=== PATIENT | male | born 1975 | race Caucasian/White ===

== ENCOUNTER 2016-07-10 12:20 | Inpatient (IN) | payer OTHER ==
[2016-07-10] MEDS ORDERED: NITROGLYCERIN OINT 1 INCH/GM PACKET TOPICAL STA (12:23)
--- NOTE | 2016-07-10 12:30 | ED ---
General Adult HPI - General Stated complaint: Chest Pain Time Seen by Provider: 07/10/16 12:20 Source: patient, EMS, RN notes reviewed Mode of arrival: EMS Limitations: no limitations - History of Present Illness Initial comments: This 40-year-old male who presents emergency with past medical history significant for smoking and a strong family history for heart disease. Patient has chest pain today went to his doctor's office where they saw the he has some minimal ST segment elevation in inferior leads and called EMS. When EMS arrived they saw the same thing and brought the patient is a priority 1. Patient states his chest pain is very minimal at this point in time. Patient states he also was a heroin and cocaine abuser but has been clean for 37 days. Patient denies any difficulty breathing shortness of breath or diaphoresis. Patient denies any abdominal pain patient denies nausea vomiting diarrhea. Patient denies any recent fever chills or cough - Related Data Home Medications Medication Instructions Recorded Confirmed Naproxen Sodium [Aleve] 440 mg PO ONCE PRN 07/10/16 07/10/16 Allergies Allergy/AdvReac Type Severity Reaction Status Date / Time cyclobenzaprine AdvReac Behavior Verified 07/10/16 13:12 [From Flexeril] change Review of Systems ROS Statement: Those systems with pertinent positive or pertinent negative responses have been documented in the HPI. ROS Other: All systems not noted in ROS Statement are negative. Past Medical History Past Medical History: No Reported History History of Any Multi-Drug Resistant Organisms: None Reported Additional Past Surgical History / Comment(s): inguinal hernia repair Past Psychological History: No Psychological Hx Reported Smoking Status: Current every day smoker Past Alcohol Use History: None Reported Past Drug Use History: IV Drug Use General Exam - General Exam Comments Initial Comments: GENERAL: Patient is well-developed and well-nourished. Patient is nontoxic and well- hydrated and is in mild distress. ENT: Neck is soft and supple. No significant lymphadenopathy is noted. Oropharynx is clear. Moist mucous membranes. Neck has full range of motion without eliciting any pain. EYES: The sclera were anicteric and conjunctiva were pink and moist. Extraocular movements were intact and pupils were equal round and reactive to light. Eyelids were unremarkable. PULMONARY: Unlabored respirations. Good breath sounds bilaterally. No audible rales rhonchi or wheezing was noted. CARDIOVASCULAR: There is a regular rate and rhythm without any murmurs gallops or rubs. ABDOMEN: Soft and nontender with normal bowel sounds. No palpable organomegaly was noted. There is no palpable pulsatile mass. SKIN: Skin is clear with no lesions or rashes and otherwise unremarkable. NEUROLOGIC: Patient is alert and oriented x3. Cranial nerves II through XII are grossly intact. Motor and sensory are also intact. Normal speech, volume and content. Symmetrical smile. MUSCULOSKELETAL: Normal extremities with adequate strength and full range of motion. No lower extremity swelling or edema. No calf tenderness. LYMPHATICS: No significant lymphadenopathy is noted PSYCHIATRIC: Normal psychiatric evaluation. Normal interpersonal interactions appears functionally intact in deals appropriately with others. No signs of depression. No signs of anxiety. Limitations: no limitations Course Vital Signs 07/10/16 07/10/16 07/10/16 12:23 13:53 14:05 Temperature 99.1 F Pulse Rate 71 68 63 Respiratory 18 18 18 Rate Blood Pressure 120/7 142/90 O2 Sat by Pulse 99 98 Oximetry Medical Decision Making - Medical Decision Making EKG shows normal sinus rhythm at 72 bpm OK interval is 104 QRS 78 QT interval 364 QTC is 398. Patient's EKG shows no ST segment elevation or depression or T- wave abnormality is noted. Patient started having some chest pain. Patient's EKG was repeated and showed sinus bradycardia 59 bpm OK interval is 176 QRS is 92 QT interval 386 QTC is 382. Patient's EKG shows no T-wave inversions however he does show some minor ST segment elevation II, III, and F aVF as well as leads V4 through V6 which all look like early repolarization. I spoke with Dr. Jacome on a couple of occasions indicating to him the changes in EKG. I started patient had a because of these changes as well as the patient 's symptoms. I admitted the patient I spoke with Dr. Park and I wrote orders and consult cardiology and I continue the heparin and aspirin and nitro paste on the floor. - Lab Data Result diagrams: 07/10/16 12:22 07/10/16 12:22 Lab Results 07/10/16 07/10/16 07/10/16 Range/Units 12:22 12:22 12:22 WBC 9.5 (3.8-10.6) k/uL RBC 5.06 (4.30-5.90) m/uL Hgb 15.9 (13.0-17.5) gm/dL Hct 48.1 (39.0-53.0) % MCV 95.1 (80.0-100.0) fL MCH 31.5 (25.0-35.0) pg MCHC 33.1 (31.0-37.0) g/dL RDW 13.0 (11.5-15.5) % Plt Count 235 (150-450) k/uL Neutrophils % 62 % Lymphocytes % 26 % Monocytes % 6 % Eosinophils % 3 % Basophils % 1 % Neutrophils # 5.9 (1.3-7.7) k/uL Lymphocytes # 2.5 (1.0-4.8) k/uL Monocytes # 0.6 (0-1.0) k/uL Eosinophils # 0.3 (0-0.7) k/uL Basophils # 0.1 (0-0.2) k/uL PT (9.0-12.0) sec INR (<1.1) APTT (22.0-30.0) sec Sodium 142 (137-145) mmol/L Potassium 4.6 (3.5-5.1) mmol/L Chloride 107 (98-107) mmol/L Carbon Dioxide 25 (22-30) mmol/L Anion Gap 10 mmol/L BUN 16 (9-20) mg/dL Creatinine 0.93 (0.66-1.25) mg/dL Est GFR (MDRD) Af Amer >60 (>60 ml/min/1.73 sqM) Est GFR (MDRD) Non-Af >60 (>60 ml/min/1.73 sqM) Glucose 96 (74-99) mg/dL Calcium 10.0 (8.4-10.2) mg/dL Magnesium 1.8 (1.6-2.3) mg/dL Total Bilirubin 0.7 (0.2-1.3) mg/dL AST 19 (17-59) U/L ALT 27 (21-72) U/L Alkaline Phosphatase 60 (38-126) U/L Total Creatine Kinase 76 (55-170) U/L CK-MB (CK-2) 0.6 (0.0-2.4) ng/mL CK-MB (CK-2) Rel Index 0.8 Troponin I <0.012 (0.000-0.034) ng/mL Total Protein 7.8 (6.3-8.2) g/dL Albumin 4.9 (3.5-5.0) g/dL 07/10/16 Range/Units 12:22 WBC (3.8-10.6) k/uL RBC (4.30-5.90) m/uL Hgb (13.0-17.5) gm/dL Hct (39.0-53.0) % MCV (80.0-100.0) fL MCH (25.0-35.0) pg MCHC (31.0-37.0) g/dL RDW (11.5-15.5) % Plt Count (150-450) k/uL Neutrophils % % Lymphocytes % % Monocytes % % Eosinophils % % Basophils % % Neutrophils # (1.3-7.7) k/uL Lymphocytes # (1.0-4.8) k/uL Monocytes # (0-1.0) k/uL Eosinophils # (0-0.7) k/uL Basophils # (0-0.2) k/uL PT 11.3 (9.0-12.0) sec INR 1.1 (<1.1) APTT 25.1 (22.0-30.0) sec Sodium (137-145) mmol/L Potassium (3.5-5.1) mmol/L Chloride (98-107) mmol/L Carbon Dioxide (22-30) mmol/L Anion Gap mmol/L BUN (9-20) mg/dL Creatinine (0.66-1.25) mg/dL Est GFR (MDRD) Af Amer (>60 ml/min/1.73 sqM) Est GFR (MDRD) Non-Af (>60 ml/min/1.73 sqM) Glucose (74-99) mg/dL Calcium (8.4-10.2) mg/dL Magnesium (1.6-2.3) mg/dL Total Bilirubin (0.2-1.3) mg/dL AST (17-59) U/L ALT (21-72) U/L Alkaline Phosphatase (38-126) U/L Total Creatine Kinase (55-170) U/L CK-MB (CK-2) (0.0-2.4) ng/mL CK-MB (CK-2) Rel Index Troponin I (0.000-0.034) ng/mL Total Protein (6.3-8.2) g/dL Albumin (3.5-5.0) g/dL Critical Care Time Critical Care Time: Yes Total Critical Care Time: 35 Disposition Clinical Impression: Unstable angina pectoris Disposition: ADMITTED IP TO THIS [facility] Time of Disposition: 14:24
[2016-07-10 12:34] LABS: Basophils # (A) 0.1 k/uL (0-0.2); Basophils % (A) 1 %; CH 32.1; CHCM 33.9; Eosinophils # (A) 0.3 k/uL (0-0.7); Eosinophils % (A) 3 %; HCT 48.1 % (39.0-53.0); HDW 2.33; HGB 15.9 gm/dL (13.0-17.5); Luc # (Auto) 0.21; Luc % (Auto) 2; Lymphocytes # (A) 2.5 k/uL (1.0-4.8); Lymphocytes % (A) 26 %; MCH 31.5 pg (25.0-35.0); MCHC 33.1 g/dL (31.0-37.0); MCV 95.1 fL (80.0-100.0); Mean Platelet Volume 7.8; Monocytes # (A) 0.6 k/uL (0-1.0); Monocytes % (A) 6 %; Neutrophils # (A) 5.9 k/uL (1.3-7.7); Neutrophils % (A) 62 %; RBC 5.06 m/uL (4.30-5.90); WBC 9.5 k/uL (3.8-10.6); WBC (Perox) 9.45
[2016-07-10 12:47] LABS: INR 1.1 (<1.1); Partial Thromboplastin Time 25.1 sec (22.0-30.0); Prothrombin Time 11.3 sec (9.0-12.0)
[2016-07-10 12:49] LABS: ALT 27 U/L (21-72); AST 19 U/L (17-59); Alkaline Phosphatase 60 U/L (38-126); Anion Gap 10 mmol/L; Blood Urea Nitrogen 16 mg/dL (9-20); Carbon Dioxide 25 mmol/L (22-30); Chloride 107 mmol/L (98-107); Glucose 96 mg/dL (74-99); Magnesium 1.8 mg/dL (1.6-2.3); Non-African American GFR(MDRD) >60 (>60 ml/min/1.73 sqM); Potassium 4.6 mmol/L (3.5-5.1); Sodium 142 mmol/L (137-145); Total Bilirubin 0.7 mg/dL (0.2-1.3); Total Protein 7.8 g/dL (6.3-8.2)
--- NOTE | 2016-07-10 13:08 | XR ---
EXAMINATION TYPE: XR chest 2V DATE OF EXAM: 07/10/2016 1:03 PM COMPARISON: NONE HISTORY: Chest pain TECHNIQUE: Frontal and lateral views of the chest are obtained. FINDINGS: There is no focal air space opacity. No evidence for pnuemothorax.No pleural effusion. The cardiac silhouette size is within normal limits. The osseous structures are grossly intact. IMPRESSION: 1. No acute cardiopulmonary process.
[2016-07-10 13:12] LABS: Creatine Kinase 76 U/L (55-170)
[2016-07-10 13:26] LABS: Creatine Kinase MB 0.6 ng/mL (0.0-2.4); Troponin I <0.012 ng/mL (0.000-0.034)
[2016-07-10] MEDS ORDERED: HEPARIN SODIUM,PORCINE 5,000 UNIT/ML 1 ML VIAL IV ONE (14:23)
[2016-07-10] MEDS: NITROGLYCERIN SL TABS 0.4 MG TAB SUBLINGUAL PRN ×2 (14:29→14:42)
[2016-07-10] MEDS ORDERED: HEPARIN SODIUM,PORCINE/D5W PMX 25,000 UNIT in DEXTROSE/WATER 1 500ML.BAG IV SCH (14:30)
--- NOTE | 2016-07-10 14:52 | P.CRDCN ---
History of Present Illness Consult date: 07/10/16 Chief complaint: Chest discomfort History of present illness: This is a pleasant 40-year-old gentleman with no significant past medical history but significant history of smoking and significant family history of coronary artery disease was referred to the emergency room [place] [facility] [place] The patient was getting treated for drug abuse and he has been clean for the last 37 days. He was seen by his physician earlier today when he complained to him about chest discomfort. An EKG over there was performed and showed sinus rhythm with diffuse ST segment elevation consistent with airway repolarization. The patient was referred to the emergency room for further evaluation. I seen the patient in the ER where he stated that he's been experiencing intermittent episodes of chest discomfort over the last several years but over the last several weeks the chest discomfort was more intense and more frequent than before. In the ER he was having chest discomfort and it was relieved by nitroglycerin sublingual. The first set of cardiac enzymes came in to be unremarkable. We have to more sets of enzymes. The EKG showed sinus rhythm with early repolarization. An echocardiogram was performed and will follow-up with us. I would rule out an acute coronary event by following with serial cardiac enzymes. We will repeat the EKG in association with any chest discomfort. If the patient develop any more discomfort I will consider proceeding with coronary angiogram. Past Medical History Past Medical History: No Reported History History of Any Multi-Drug Resistant Organisms: None Reported Additional Past Surgical History / Comment(s): inguinal hernia repair Past Psychological History: No Psychological Hx Reported Smoking Status: Current every day smoker Past Alcohol Use History: None Reported Past Drug Use History: IV Drug Use Medications and Allergies Home Medications Medication Instructions Recorded Confirmed Type Naproxen Sodium [Aleve] 440 mg PO ONCE PRN 07/10/16 07/10/16 History Allergies Allergy/AdvReac Type Severity Reaction Status Date / Time cyclobenzaprine AdvReac Behavior Verified 07/10/16 13:12 [From Flexeril] change Physical Exam Vitals: Vital Signs Pulse Resp BP Pulse Ox 07/10/16 14:44 69 18 128/83 97 07/10/16 14:39 69 18 128/83 97 - Constitutional General appearance: no acute distress - Respiratory Respiratory: bilateral: CTA - Cardiovascular Rhythm: regular Heart sounds: normal: S1, S2 Results 07/10/16 12:22 07/10/16 12:22 Current Medications Generic Name Dose Route Start Last Admin Trade Name Freq PRN Reason Stop Dose Admin Aspirin 325 mg 07/11/16 09:00 Aspirin PO DAILY [facility] Heparin Sodium/Dextrose 25,000 500 mls @ 13.82 mls/hr 07/10/16 14:30 unit/ IV Solution IV .Q24H [facility] Protocol 12 UNITS/KG/HR Nitroglycerin 1 inch 07/10/16 18:00 Nitro-Bid Oint TOPICAL Q6HR [facility] Nitroglycerin 0.4 mg 07/10/16 14:24 07/10/16 14:42 Nitrostat SUBLINGUAL 0.4 mg Q5M PRN Administration Chest Pain Assessment and Plan Plan: Assessment #1 intermittent episodes of chest discomfort #2 significant history of smoking #3 significant family history of CAD Plan #1 rule out any acute coronary event #2 currently the patient is pain-free #3 obtain an echocardiogram was Doppler #4 follow-up with the patient
[2016-07-10] MEDS ORDERED: ACETAMINOPHEN TAB 325 MG TAB PO STA (15:08)
[2016-07-10] MEDS: NITROGLYCERIN OINT 1 INCH/GM PACKET TOPICAL SCH ×2 (18:31→23:41)
[2016-07-10 18:45] LABS: Creatine Kinase 64 U/L (55-170)
[2016-07-10 18:58] LABS: Creatine Kinase MB 0.5 ng/mL (0.0-2.4); Troponin I <0.012 ng/mL (0.000-0.034)
[2016-07-10] MEDS: ACETAMINOPHEN TAB 325 MG TAB PO PRN (19:46)
[2016-07-10] MEDS: GABAPENTIN 300 MG CAP PO SCH (23:39)
[2016-07-11 01:32] LABS: Creatine Kinase 54 U/L (55-170)
[2016-07-11 01:43] LABS: Creatine Kinase MB 0.3 ng/mL (0.0-2.4); Troponin I <0.012 ng/mL (0.000-0.034)
[2016-07-11] MEDS: ACETAMINOPHEN TAB 325 MG TAB PO PRN ×5 (03:17→23:11)
[2016-07-11 04:22] LABS: Cholesterol 163 mg/dL (<200); HDL Cholesterol 38 mg/dL (40-60); Triglycerides 198 mg/dL (<150)
[2016-07-11] MEDS: NITROGLYCERIN OINT 1 INCH/GM PACKET TOPICAL SCH (06:30)
--- NOTE | 2016-07-11 08:07 | HP ---
DATE OF ADMISSION: CHIEF COMPLAINT: Chest pain. HISTORY OF PRESENT ILLNESS: This is the first admission for this 40-year-old white male. He came to emergency room with right-sided "sharp and stabbing" chest pain. He has had it on and off for some time. He has no associated cough, hemoptysis, fever, chills, pleuritic pain, palpitations, syncope, orthopnea, PND, etc. Studies in the emergency room were negative. He does have a history of drug abuse. He also has extensive family history of cardiac disease. He has had no associated radiation of the pain, heavy or pressure-like sensation, diaphoresis or shortness of breath. REVIEW OF SYSTEMS: He has had no other symptoms. It is not related to food or diet. Past medical history, family and personal and social histories are unremarkable otherwise except that he smokes a pack of cigarettes a day. He also just gout out of rehab for substance abuse and he has abused multiple different substances including stimulants, crack cocaine, heroin, etc. PHYSICAL EXAMINATION: Blood pressure 136/84, pulse 71, respirations 19. He is afebrile. GENERAL: He appeared to be slender, in no acute distress. Skin color is normal. Skin is warm and dry. Lymph nodes are not enlarged. Head, ears, eyes, nose, mouth, and throat were normal. Neck veins not distended. Thyroid is not enlarged. Chest is clear. Cardiac exam is normal. ABDOMEN: Soft, nontender. EXTREMITIES: Normal. Neurologically, he is intact. IMPRESSION: 1. Atypical right-sided anterior chest wall pain. 2. History of substance abuse. PLAN: 1. Bedrest. 3. IV fluids. 4. Serial EKGs and enzymes. 5. Probably home tomorrow.
[2016-07-11] MEDS: GABAPENTIN 300 MG CAP PO SCH ×4 (08:17→20:29)
[2016-07-11] MEDS: ASPIRIN 325 MG TAB PO SCH (08:18)
--- NOTE | 2016-07-11 12:49 | P.PN ---
Subjective Principal diagnosis: On going chest discomfort This is a pleasant 40-year-old gentleman with no significant past medical history but significant history of smoking and significant family history of coronary artery disease was referred to the emergency room from [facility]. The patient was getting treated for drug abuse and he has been clean for the last 37 days. He was seen by his physician earlier today when he complained to him about chest discomfort. An EKG over there was performed and showed sinus rhythm with diffuse ST segment elevation consistent with airway repolarization. The patient was referred to the emergency room for further evaluation. I seen the patient in the ER where he stated that he's been experiencing intermittent episodes of chest discomfort over the last several years but over the last several weeks the chest discomfort was more intense and more frequent than before. In the ER he was having chest discomfort and it was relieved by nitroglycerin sublingual. 3 sets of cardiac enzymes were checked and came in to be unremarkable. The EKG showed sinus rhythm with early repolarization. He underwent an echocardiogram which is still pending at this point. The patient continues to have mild ongoing chest discomfort. If the echocardiogram did not show any signs of pericardial effusion I will consider proceeding with heart catheterization barely this afternoon. Objective - Vital Signs Vital signs: Vital Signs Temp 97.0 F L 07/11/16 08:00 Pulse 68 07/11/16 08:00 Resp 16 07/11/16 08:00 BP 116/83 07/11/16 08:00 Pulse Ox 98 07/11/16 08:00 Intake & Output 07/10/16 07/11/16 07/11/16 18:59 06:59 18:59 Intake Total 13.82 237.977 Balance 13.82 237.977 Weight 57.606 kg 53.7 kg Intake: IV 13.82 Heparin Sodium,Porcine/ 13.82 D5w Pmx 25,000 unit In Dextrose/Water 1 500ml. bag @ 12 UNITS/KG/HR 13. 82 mls/hr IV .Q24H [facility] Rx #:[id number] Intake, IV Titration 237.977 Amount Heparin Sodium,Porcine/ 237.977 D5w Pmx 25,000 unit In Dextrose/Water 1 500ml. bag @ 12 UNITS/KG/HR 13. 82 mls/hr IV .Q24H [facility] Rx #:[id number] Other: Voiding Method Toilet Toilet # Voids 1 - Constitutional General appearance: Present: no acute distress - Respiratory Respiratory: bilateral: CTA - Cardiovascular Rhythm: regular - Labs CBC & Chem 7: 07/10/16 12:22 07/10/16 12:22 Labs: Abnormal Lab Results - Last 24 Hours (Table) 07/10/16 07/11/16 07/11/16 Range/Units 21:15 00:55 03:55 APTT 35.2 H (22.0-30.0) sec Total Creatine Kinase 54 L (55-170) U/L Triglycerides 198 H (<150) mg/dL HDL Cholesterol 38 L (40-60) mg/dL 07/11/16 07/11/16 Range/Units 03:55 12:12 APTT 38.8 H 54.0 H (22.0-30.0) sec Total Creatine Kinase (55-170) U/L Triglycerides (<150) mg/dL HDL Cholesterol (40-60) mg/dL Assessment and Plan Plan: Assessment #1 intermittent episodes of chest discomfort #2 significant history of smoking #3 significant family history of CAD Plan #1 acute coronary syndrome was ruled out #2 awaiting for the echocardiogram
--- NOTE | 2016-07-11 13:59 | PN ---
DATE OF SERVICE: 07/11/2016 CHIEF COMPLAINT: Atypical chest pain. HISTORY OF PRESENT ILLNESS: This gentleman is doing well. He has had no pain or any other difficulty. He will probably be able to go home today. PHYSICAL EXAM: Chest is clear. Cardiac exam is normal. ABDOMEN: Soft, nontender. IMPRESSION: 1. Atypical chest pain. 2. History of substance abuse. PLAN: Probably home today and this will be arranged by the nurse practitioner.
[2016-07-11] MEDS: NICOTINE 21MG/24HR PATCH TRANSDERM SCH (17:03)
[2016-07-11 23:57] LABS: Anion Gap 10 mmol/L; Blood Urea Nitrogen 15 mg/dL (9-20); Calcium 9.9 mg/dL (8.4-10.2); Carbon Dioxide 23 mmol/L (22-30); Chloride 109 mmol/L (98-107); Glucose 109 mg/dL (74-99); Non-African American GFR(MDRD) >60 (>60 ml/min/1.73 sqM); Potassium 4.1 mmol/L (3.5-5.1); Sodium 142 mmol/L (137-145)
[2016-07-12] MEDS: NITROGLYCERIN SL TABS 0.4 MG TAB SUBLINGUAL PRN ×3 (03:24→03:37)
[2016-07-12] MEDS: ACETAMINOPHEN TAB 325 MG TAB PO PRN ×2 (04:12→10:04)
[2016-07-12] MEDS: NICOTINE 21MG/24HR PATCH TRANSDERM SCH (06:29)
[2016-07-12] MEDS: GABAPENTIN 300 MG CAP PO SCH ×2 (06:29→13:11)
[2016-07-12] MEDS: ASPIRIN 325 MG TAB PO SCH (06:29)
[2016-07-12] MEDS ORDERED: MIDAZOLAM 2 MG/2 ML VIAL ONE (10:42)
[2016-07-12] MEDS ORDERED: VERAPAMIL 2.5 MG/ML 2 ML AMP ONE (10:42)
[2016-07-12] MEDS ORDERED: LIDOCAINE 2% INJ 20 MG/ML (20 ML MDV) ONE (10:42)
[2016-07-12] MEDS ORDERED: IV FLUID CONTINUATION 575 ML IV ONE (10:45)
[2016-07-12] MEDS ORDERED: MIDAZOLAM 2 MG/2 ML VIAL IVP ONE (11:01)
[2016-07-12] MEDS ORDERED: HEPARIN SODIUM 1,000 UNIT/ML VIAL ONE (11:10)
[2016-07-12] MEDS ORDERED: LIDOCAINE 2% INJ 20 MG/ML SQ ONE (11:11)
[2016-07-12] MEDS: VERAPAMIL SYRINGE (5 MG/10 ML) INTRAARTER ONE ×2 (11:12→11:24)
[2016-07-12] MEDS ORDERED: HEPARIN SODIUM 1,000 UNIT/ML VIAL IV ONE (11:13)
[2016-07-12] MEDS ORDERED: IOHEXOL 350 MG/ML 125ML BOTTLE INJ ONE (11:24)
[2016-07-12] MEDS ORDERED: SODIUM CHLORIDE 0.9% 1,000 ML IV SCH (11:30)
[2016-07-12] MEDS ORDERED: RX INFO: IV CONTRAST WAS GIVEN 1 EACH MISC MISCELLANE PRN (11:30)
--- NOTE | 2016-07-12 12:05 | CC ---
DATE OF SERVICE: 07/12/2016 PERFORMING PHYSICIAN: Clinton López MD, food handler. PROCEDURE PERFORMED: Selective right and left coronary angiogram. INDICATION: This is a pleasant 40-year-old gentleman who presented to the hospital with chest discomfort and continues to have ongoing chest discomfort. He has very significant family history of coronary artery disease. He is also a smoker. APPROACH: Right radial artery. COMPLICATIONS: None. LEVEL OF SEDATION: Moderate with sedation length of 15 minutes. PROCEDURE DESCRIPTION: After obtaining an informed consent, the patient was brought to the cardiac bolt labeler. Right radial artery was cannulated using micropuncture technique. The micropuncture wire passed easily, then I placed 6 Sami sheath in the right radial artery. Subsequently, I gave the patient 2 mg of verapamil IA and 3000 units of heparin IV. After that, I did selective right and left coronary angiogram using JR4 and JL3.5 catheters. The procedure was completed without any complication. SELECTIVE CORONARY ANGIOGRAM: 1. The right coronary artery is a large-caliber vessel and it is a dominant vessel. It is angiographically normal. Distally bifurcates into PDA and PLV branches and both are angiographically normal. 2. The left main is a large-caliber vessel. The left main has eccentric plaque, seems to be in the range of 20% to 30%. It bifurcates into the left circumflex and left anterior descending artery. 3. The left circumflex is a medium caliber vessel and it is a nondominant vessel. The proximal circumflex is angiographically normal and gives rises into the first OM, which appeared to be angiographically normally. The mid circumflex is normal and gives rise into second OM, which seems to be angiographically normal and the circumflex continues after that as a small-caliber vessel in the AV groove. 4. The left anterior descending artery: The proximal LAD appeared to be angiographically normal. It gives rise into the first diagonal branch, which seems to be angiographically normal. The mid LAD has what seems to be evidence of myocardial bridging. The LAD in the midportion gives rise into the second diagonal branch, which seems to be angiographically normally. The LAD distally is normal. CONCLUSION: 1. Mild disease involving the distal left main coronary artery. 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 Postprocedure management will be: 1. Maximize medical treatment. 2. Add statin to the current medical treatment. 3. Follow up with the patient.
--- NOTE | 2016-07-12 12:51 | PN ---
CHIEF COMPLAINT: Atypical chest pain. HISTORY OF PRESENT ILLNESS: This gentleman had another episode of pain today, which he describes as sharp and stabbing in the right anterior chest. It is fleeting and disappeared. He had no diaphoresis or shortness of breath and he is going for a cardiac cath today. PHYSICAL EXAM: Chest is clear. Cardiac exam is normal. ABDOMEN: Soft, nontender. Vital signs are normal. IMPRESSION: 1. Atypical chest pain. 2. History of substance abuse. PLAN: Cardiac cath today.
[2016-07-12 14:21] VITALS: TEMP 98.8
[2016-07-12 14:23] VITALS: RESP 16
[2016-07-12 16:33] VITALS: BP 144/88; PULSE 88
[2016-07-13] MEDS ORDERED: ATORVASTATIN 20 MG TAB PO SCH (09:00)
--- NOTE | 2016-07-13 20:40 | DS ---
DATE OF ADMISSION: 07/10/2016 DATE OF DISCHARGE: 07/12/2016 CHIEF COMPLAINT: Atypical chest pain. HISTORY OF PRESENT ILLNESS AND PHYSICAL EXAMINATION: The details of this man's history and physical can be found in the initial work-up. LABORATORY STUDIES: While he was in hospital, he had laboratory studies, the details of which can be found in the laboratory section of the chart. COURSE IN THE HOSPITAL: After admission, he was placed on bed rest, started on intravenous fluids and had serial EKGs and enzymes and they were all normal. He was seen by Cardiology who decided to take him to the label printing machinist for cardiac cath, which demonstrated no significant coronary artery disease. It was felt he could be discharged. He could go home on light activity about the house and his usual diet. DISCHARGE MEDICATIONS: 1. He will be on Lipitor 20 mg at bedtime. 2. Nitroglycerin patch 21 micrograms an hour. 3. 81 mg aspirin. He will follow-up in the office in several days. FINAL DIAGNOSES: 1. Atypical chest pain. 2. Chronic obstructive pulmonary disease. Operations: Cardiac cath. CONSULTATIONS: Cardiology. He is improved.
--- NOTE | 2016-07-16 16:10 | ECHOF ---
Referral Reason:Chest Pain MEASUREMENTS -------- HEIGHT: 165.1 cm WEIGHT: 57.6 kg BP: 134/78 IVSd: 1.1 cm (0.6 - 1.1) LVIDd: 3.5 cm (3.9 - 5.3) LVPWd: 1.1 cm (0.6 - 1.1) IVSs: 1.2 cm LVIDs: 2.1 cm LVPWs: 1.3 cm Ao Diam: 3.2 cm (2.0 - 3.7) AV Cusp: 2.1 cm (1.5 - 2.6) LA Diam: 2.5 cm (2.7 - 3.8) MV EXCURSION: 16.638 mm (> 18.000) MV EF SLOPE: 91 mm/s (70 - 150) EPSS: 0.6 cm MV E Pee: 0.56 m/s MV DecT: 214 ms MV A Pee: 0.52 m/s MV E/A Ratio: 1.08 RAP: 5.00 mmHg RVSP: 8.86 mmHg FINDINGS -------- Sinus rhythm. This was a technically good study. There is borderline concentric left ventricular hypertrophy. Overall left ventricular systolic function is normal with, an EF between 60 - 65 %. The right ventricle is normal in size. Normal LA size by volume 22+/-6 ml/m2. The right atrium is normal in size. Aortic valve is trileaflet and is mildly thickened. There is no evidence of aortic regurgitation. There is no evidence of aortic stenosis. The mitral valve leaflets are mildly thickened. There is trace mitral regurgitation. Trace tricuspid regurgitation present. There is no evidence of pulmonary hypertension. The right ventricular systolic pressure, as measured by Doppler, is 8.86mmHg. The pulmonic valve is normal. The aortic root size is normal. There is no pericardial effusion. CONCLUSIONS -------- 1. Sinus rhythm. 2. There is no pericardial effusion. 3. There is borderline concentric left ventricular hypertrophy. 4. Overall left ventricular systolic function is normal with, an EF between 60 - 65 %. 5. Aortic valve is trileaflet and is mildly thickened. 6. The mitral valve leaflets are mildly thickened. 7. There is trace mitral regurgitation. 8. Trace tricuspid regurgitation present. 9. There is no evidence of pulmonary hypertension. 10. The aortic root size is normal. ADULT LIVE IN CAREGIVER: Denice León RDCS
== END 2016-07-12 18:47 | disposition home or self-care (01) | DRG 287 ==
LOC: EC 12:20 → 6SEL 14:27
PROVIDERS: ADMIT Family Medicine; ATTEND Family Medicine
PROC: B2111ZZ Fluoroscopy of Multiple Coronary Arteries using Low Osmolar Contrast (ICD-10-PCS; 2016-07-12)
PROC: 4A023N7 Measurement of Cardiac Sampling and Pressure, Left Heart, Percutaneous Approach (ICD-10-PCS; principal; 2016-07-12 11:00)
DX: R07.89 Other chest pain (principal); Q24.5 Malformation of coronary vessels; R00.1 Bradycardia, unspecified; I25.10 Atherosclerotic heart disease of native coronary artery without angina pectoris; F14.10 Cocaine abuse, uncomplicated; F11.10 Opioid abuse, uncomplicated; F15.10 Other stimulant abuse, uncomplicated; R94.31 Abnormal electrocardiogram [ECG] [EKG]; J44.9 Chronic obstructive pulmonary disease, unspecified; F17.210 Nicotine dependence, cigarettes, uncomplicated; Z82.49 Family history of ischemic heart disease and other diseases of the circulatory system; Z88.8 Allergy status to other drugs, medicaments and biological substances
CPT/HCPCS: 36415; 71020; 80048; 80053; 80061; 80306; 82550; 82553; 83735; 84484; 85025; 85610; 85730; 93005; 93306; 93454; 96365; 96366; 96376; 99291

== ENCOUNTER 2016-08-30 15:40 | Emergency (ER) | payer OTHER ==
[2016-08-30] MEDS ORDERED: SODIUM CHLORIDE 0.9% 500 ML IV STA (16:26)
[2016-08-30] MEDS ORDERED: MORPHINE SULFATE 4 MG/ML SYRINGE IVP STA (16:26)
[2016-08-30] MEDS ORDERED: ONDANSETRON 4 MG/2 ML VIAL IVP STA (16:26)
[2016-08-30] MEDS ORDERED: MAG HYDROX/AL HYDROX/SIMETH 30 ML, HYOSCYAMINE ELIXIR 10 ML, CIMETIDINE HCL 300 MG PO STA ×3 (16:26)
[2016-08-30 16:53] LABS: ALT 34 U/L (21-72); AST 18 U/L (17-59); Alkaline Phosphatase 67 U/L (38-126); Anion Gap 12 mmol/L; Blood Urea Nitrogen 15 mg/dL (9-20); Calcium 9.5 mg/dL (8.4-10.2); Carbon Dioxide 23 mmol/L (22-30); Chloride 107 mmol/L (98-107); Glucose 89 mg/dL (74-99); Non-African American GFR(MDRD) >60 (>60 ml/min/1.73 sqM); Potassium 4.5 mmol/L (3.5-5.1); Sodium 142 mmol/L (137-145); Total Bilirubin 0.4 mg/dL (0.2-1.3); Total Protein 6.5 g/dL (6.3-8.2)
--- NOTE | 2016-08-30 17:16 | ED ---
General Adult HPI - General Chief complaint: Nausea/Vomiting/Diarrhea Stated complaint: diarrhea/abdominal pain Source: patient Mode of arrival: ambulatory Limitations: no limitations - History of Present Illness Initial comments: 41-year-old male with past medical history ofChronic back/neck pain, bulging disks in the neck, concussions, hiatal hernia with repair, migraines, shingles and 2012, history of IV drug abuse, and an unknown heart valve condition presenting for evaluation of epigastric abdominal pain that has been present since Thursday. He states this was preceded by diarrhea since Thursday and was seen by his primary care physician on at which time he was given a prescription for Imodium without any relief in his symptoms. He states that his pain is worse with oral intake. Diarrhea is watery and he describes it as light in color and frothy without blood, maroon-colored stool, or melena. He has never had these symptoms before and states that he has been alcohol free for a couple years now. No history of gallbladder disease. - Related Data Home Medications Medication Instructions Recorded Confirmed Aspirin [Adult Low Dose Aspirin EC] 81 mg PO DAILY 07/12/16 08/30/16 Atorvastatin [Lipitor] 20 mg PO HS 07/12/16 08/30/16 Nitroglycerin 0.4 mg SL Q5M PRN 07/12/16 08/30/16 Albuterol Inhaler [Ventolin Hfa 1 - 2 puff INHALATION RT-Q6H PRN 08/30/16 Inhaler] Gabapentin [Neurontin] 600 mg PO TID 08/30/16 08/30/16 Ibuprofen [Motrin] 600 mg PO Q8HR PRN 08/30/16 08/30/16 Loperamide [Imodium] 2 mg PO QID PRN 08/30/16 08/30/16 busPIRone HCL 15 mg PO BID 08/30/16 08/30/16 traZODone HCL [Desyrel] 100 mg PO HS 08/30/16 08/30/16 Previous Rx's Medication Instructions Recorded Famotidine [Pepcid] 20 mg PO BID #20 tablet 08/30/16 Mag Hydrox/Al Hydrox/Simeth 30 ml PO BID PRN #250 ml 08/30/16 [Maalox] Allergies Allergy/AdvReac Type Severity Reaction Status Date / Time cyclobenzaprine AdvReac Behavior Verified 08/30/16 16:06 [From Flexeril] change metaxalone [From Skelaxin] AdvReac Behavior Verified 08/30/16 16:06 change Review of Systems ROS Statement: Those systems with pertinent positive or pertinent negative responses have been documented in the HPI. ROS Other: All systems not noted in ROS Statement are negative. Constitutional: Denies: fever, chills Eyes: Denies: eye pain, eye discharge ENT: Denies: ear pain, throat pain Respiratory: Denies: cough, dyspnea Cardiovascular: Denies: chest pain, palpitations Endocrine: Denies: fatigue, polydipsia, polyuria Gastrointestinal: Reports: abdominal pain, nausea, diarrhea. Denies: vomiting, hematemesis, melena, hematochezia Genitourinary: Denies: urgency, dysuria Musculoskeletal: Denies: back pain, arthralgia, myalgia Skin: Denies: rash, lesions Neurological: Denies: headache, weakness Psychiatric: Denies: anxiety, depression Hematological/Lymphatic: Denies: easy bleeding, easy bruising Past Medical History Past Medical History: No Reported History Additional Past Medical History / Comment(s): CHRONIC BACK/NECK PAIN. "BULGING DISCS-NECK", X2 CONCUSSIONS WHEN PLAYING HOCKEY. COLOR BLIND, HIATAL HERNIA, MIRAINE, SHINGLES APPROX 2011, HX IV DRUG ABUSE [facility] LIV[facility] IN A 3/4 HOUSE CALLED [address], heart valve. History of Any Multi-Drug Resistant Organisms: None Reported Past Surgical History: Hernia Repair Additional Past Surgical History / Comment(s): inguinal hernia repair Past Anesthesia/Blood Transfusion Reactions: No Reported Reaction Additional Past Anesthesia/Blood Transfusion Reaction / Comment(s): CLAUSTERPHOBIA Past Psychological History: Depression Smoking Status: Current every day smoker Past Alcohol Use History: None Reported Past Drug Use History: None Reported - Past Family History Father Family Medical History: Cancer, Diabetes Mellitus, Hypertension, Myocardial Infarction ([place]) Additional Family Medical History / Comment(s): [place] AT AGE 40, CANCER OF THE URETER Mother Family Medical History: Hypertension Additional Family Medical History / Comment(s): DEPRESSION. ON MOMS SIDE DAD AND BROTHER HAD HEART PROBLEMS General Exam Limitations: no limitations General appearance: alert, in no apparent distress Head exam: Present: atraumatic, normocephalic, normal inspection Eye exam: Present: normal appearance, PERRL, EOMI. Absent: scleral icterus, conjunctival injection, periorbital swelling ENT exam: Present: normal exam, mucous membranes moist Neck exam: Present: normal inspection. Absent: tenderness, meningismus, lymphadenopathy Respiratory exam: Present: normal lung sounds bilaterally. Absent: respiratory distress, wheezes, rales, rhonchi, stridor Cardiovascular Exam: Present: regular rate, normal rhythm, normal heart sounds. Absent: systolic murmur, diastolic murmur, rubs, gallop, clicks GI/Abdominal exam: Present: soft, tenderness, normal bowel sounds. Absent: distended, guarding, rebound, rigid, diminished bowel sounds, hyperactive bowel sounds, hypoactive bowel sounds, organomegaly, mass Rectal exam: Present: deferred Extremities exam: Present: normal inspection, full ROM, normal capillary refill. Absent: tenderness, pedal edema, joint swelling, calf tenderness Back exam: Present: normal inspection Neurological exam: Present: alert, oriented X3, CN II-XII intact Psychiatric exam: Present: normal affect, normal mood Skin exam: Present: warm, dry, intact, normal color. Absent: rash Course Vital Signs 08/30/16 08/30/16 15:42 18:43 Temperature 97.3 F L 97.2 F L Pulse Rate 80 66 Respiratory 15 18 Rate Blood Pressure 125/85 141/96 O2 Sat by Pulse 96 97 Oximetry EKG Findings - EKG Comments: EKG Findings:: Normal sinus rhythm with early repolarization a ventricular rate of 72, BRANDY 186, QRS 90, QT/QTC 386/422. Medical Decision Making - Medical Decision Making 41-year-old male presenting for evaluation of epigastric abdominal pain since Thursday and diarrhea since Thursday. He denies any gallbladder pathology and states that he has not been a drinker for the last 2 years. On physical examination the patient appears in no apparent distress resting comfortably on the cot. He has minimal tenderness to palpation of the epigastric area without peritoneal signs of guarding, rigidity, or rebound. Labs revealed no significant abnormalities and on reevaluation the patient had resolution of his symptoms. He was informed of all results and through shared decision making it was determined that he would be discharged with instructions to follow-up with his primary care physician but to return to this facility if his symptoms should worsen or persist. The patient acknowledged an understanding of this information and agreed with this plan of care. - Lab Data Result diagrams: 08/30/16 16:20 08/30/16 16:20 Lab Results 08/30/16 08/30/16 Range/Units 16:20 16:20 WBC 11.3 H (3.8-10.6) k/uL RBC 4.97 (4.30-5.90) m/uL Hgb 16.5 (13.0-17.5) gm/dL Hct 45.7 (39.0-53.0) % MCV 91.9 (80.0-100.0) fL MCH 33.2 (25.0-35.0) pg MCHC 36.1 (31.0-37.0) g/dL RDW 12.4 (11.5-15.5) % Plt Count 210 (150-450) k/uL Neutrophils % 65 % Lymphocytes % 14 % Monocytes % 5 % Eosinophils % 13 % Basophils % 1 % Neutrophils # 7.4 (1.3-7.7) k/uL Lymphocytes # 1.6 (1.0-4.8) k/uL Monocytes # 0.6 (0-1.0) k/uL Eosinophils # 1.5 H (0-0.7) k/uL Basophils # 0.1 (0-0.2) k/uL Sodium 142 (137-145) mmol/L Potassium 4.5 (3.5-5.1) mmol/L Chloride 107 (98-107) mmol/L Carbon Dioxide 23 (22-30) mmol/L Anion Gap 12 mmol/L BUN 15 (9-20) mg/dL Creatinine 1.10 (0.66-1.25) mg/dL Est GFR (MDRD) Af Amer >60 (>60 ml/min/1.73 sqM) Est GFR (MDRD) Non-Af >60 (>60 ml/min/1.73 sqM) Glucose 89 (74-99) mg/dL Calcium 9.5 (8.4-10.2) mg/dL Total Bilirubin 0.4 (0.2-1.3) mg/dL AST 18 (17-59) U/L ALT 34 (21-72) U/L Alkaline Phosphatase 67 (38-126) U/L Total Protein 6.5 (6.3-8.2) g/dL Albumin 4.4 (3.5-5.0) g/dL Lipase 55 (23-300) U/L Disposition Clinical Impression: Abdominal pain, Diarrhea Disposition: HOME SELF-CARE Condition: Stable Instructions: Acute Diarrhea (ED), Abdominal Pain (ED) Additional Instructions: Please use medication as discussed. Please follow up with family doctor if symptoms have not improved over the next two days. Please return to the emergency room if your symptoms increase or worsen or for any other concerns. Prescriptions: Famotidine [Pepcid] 20 mg PO BID #20 tablet Mag Hydrox/Al Hydrox/Simeth [Maalox] 30 ml PO BID PRN #250 ml PRN Reason: Pain Referrals: aPmela Bonilla MD [Primary Care Provider] - 1-2 days Emelia Bae MD [STAFF PHYSICIAN] - 1-2 days Time of Disposition: 18:34
[2016-08-30] MEDS ORDERED: SUCRALFATE 1 GM TAB PO STA (17:32)
[2016-08-30 18:03] LABS: Basophils # (A) 0.1 k/uL (0-0.2); Basophils % (A) 1 %; CH 32.1; CHCM 35.1; Eosinophils # (A) 1.5 k/uL (0-0.7); Eosinophils % (A) 13 %; HCT 45.7 % (39.0-53.0); HGB 16.5 gm/dL (13.0-17.5); Luc # (Auto) 0.18; Luc % (Auto) 2; Lymphocytes # (A) 1.6 k/uL (1.0-4.8); Lymphocytes % (A) 14 %; MCH 33.2 pg (25.0-35.0); MCHC 36.1 g/dL (31.0-37.0); MCV 91.9 fL (80.0-100.0); Mean Platelet Volume 8.1; Monocytes # (A) 0.6 k/uL (0-1.0); Monocytes % (A) 5 %; Neutrophils # (A) 7.4 k/uL (1.3-7.7); Neutrophils % (A) 65 %; RBC 4.97 m/uL (4.30-5.90); RDW 12.4 % (11.5-15.5); WBC 11.3 k/uL (3.8-10.6); WBC (Perox) 10.79
[2016-08-30 18:44] VITALS: BP 141/96; PULSE 66; RESP 18; TEMP 97.2
== END 2016-08-30 18:44 | disposition home or self-care (01) ==
LOC: EC 15:40
DX: R10.13 Epigastric pain (principal); R19.7 Diarrhea, unspecified; G89.29 Other chronic pain; F17.200 Nicotine dependence, unspecified, uncomplicated; Z79.82 Long term (current) use of aspirin; Z79.899 Other long term (current) drug therapy; Z88.8 Allergy status to other drugs, medicaments and biological substances; Z53.20 Procedure and treatment not carried out because of patient's decision for unspecified reasons
CPT/HCPCS: 36415; 93005; 80053; 83690; 85025; 99284; 96374; J2405

== ENCOUNTER 2016-09-05 13:20 | Emergency (ER) | payer OTHER ==
[2016-09-05] MEDS ORDERED: SODIUM CHLORIDE 0.9% 1,000 ML IV STA (14:43)
[2016-09-05] MEDS ORDERED: ONDANSETRON 4 MG/2 ML VIAL IVP STA (14:43)
[2016-09-05] MEDS ORDERED: PANTOPRAZOLE 40 MG/10 ML VIAL IVP STA (14:43)
[2016-09-05] MEDS ORDERED: DICYCLOMINE 10 MG/ML 2 ML AMP IM STA (14:43)
--- NOTE | 2016-09-05 14:45 | ED ---
General Adult HPI - General Chief complaint: Abdominal Pain Stated complaint: Abd pain Time Seen by Provider: 09/05/16 14:26 Source: patient, RN notes reviewed Mode of arrival: ambulatory Limitations: no limitations - History of Present Illness Initial comments: Patient is a pleasant 41-year-old male presenting to the emergency Department with diarrhea. Symptoms have been present for around 11 days now. Patient is having symptoms 3-4 times daily which is somewhat improved from onset. Patient has some epigastric discomfort. No fever. Mild nausea. Decreased appetite. No vomiting. No history of chronic diarrhea. No recent antibiotic use. - Related Data Home Medications Medication Instructions Recorded Confirmed Aspirin [Adult Low Dose Aspirin EC] 81 mg PO DAILY 07/12/16 09/05/16 Atorvastatin [Lipitor] 20 mg PO HS 07/12/16 09/05/16 Nitroglycerin 0.4 mg SL Q5M PRN 07/12/16 09/05/16 Albuterol Inhaler [Ventolin Hfa 1 - 2 puff INHALATION RT-Q6H PRN 08/30/16 Inhaler] Gabapentin [Neurontin] 600 mg PO TID 08/30/16 09/05/16 Ibuprofen [Motrin] 600 mg PO Q8HR PRN 08/30/16 09/05/16 Loperamide [Imodium] 2 mg PO QID PRN 08/30/16 09/05/16 busPIRone HCL 15 mg PO BID 08/30/16 09/05/16 traZODone HCL [Desyrel] 100 mg PO HS 08/30/16 09/05/16 Previous Rx's Medication Instructions Recorded Famotidine [Pepcid] 20 mg PO BID #20 tablet 08/30/16 Mag Hydrox/Al Hydrox/Simeth 30 ml PO BID PRN #250 ml 08/30/16 [Maalox] Diphenox-Atrop 2.5-0.025 mg 1 tab PO QID PRN #12 tablet 09/05/16 [Lomotil] Levofloxacin [Levaquin] 500 mg PO DAILY #10 tab 09/05/16 Allergies Allergy/AdvReac Type Severity Reaction Status Date / Time cyclobenzaprine AdvReac Behavior Verified 09/05/16 14:03 [From Flexeril] change metaxalone [From Skelaxin] AdvReac Behavior Verified 09/05/16 14:03 change Review of Systems ROS Statement: Those systems with pertinent positive or pertinent negative responses have been documented in the HPI. ROS Other: All systems not noted in ROS Statement are negative. Constitutional: Denies: fever Eyes: Denies: eye pain ENT: Denies: ear pain Respiratory: Denies: cough Cardiovascular: Denies: chest pain Endocrine: Denies: fatigue Gastrointestinal: Reports: abdominal pain, nausea, diarrhea. Denies: vomiting Genitourinary: Denies: dysuria Musculoskeletal: Denies: back pain Skin: Denies: rash Neurological: Denies: weakness Past Medical History Past Medical History: No Reported History Additional Past Medical History / Comment(s): CHRONIC BACK/NECK PAIN. "BULGING DISCS-NECK", X2 CONCUSSIONS WHEN PLAYING HOCKEY. COLOR BLIND, HIATAL HERNIA, MIRAINE, SHINGLES APPROX 2011, HX IV DRUG ABUSE [facility] L[facility] IN A 3/4 HOUSE CALLED [facility], heart valve. History of Any Multi-Drug Resistant Organisms: None Reported Past Surgical History: Hernia Repair Additional Past Surgical History / Comment(s): inguinal hernia repair Past Anesthesia/Blood Transfusion Reactions: No Reported Reaction Additional Past Anesthesia/Blood Transfusion Reaction / Comment(s): CLAUSTERPHOBIA Past Psychological History: Depression Smoking Status: Current every day smoker Past Alcohol Use History: None Reported Past Drug Use History: None Reported - Past Family History Father Family Medical History: Cancer, Diabetes Mellitus, Hypertension, Myocardial Infarction ([place]) Additional Family Medical History / Comment(s): [place] AT AGE 40, CANCER OF THE URETER Mother Family Medical History: Hypertension Additional Family Medical History / Comment(s): DEPRESSION. ON MOMS SIDE DAD AND BROTHER HAD HEART PROBLEMS General Exam Limitations: no limitations General appearance: alert, in no apparent distress Head exam: Present: atraumatic Eye exam: Present: normal appearance, PERRL ENT exam: Present: normal oropharynx Neck exam: Present: normal inspection Respiratory exam: Present: normal lung sounds bilaterally Cardiovascular Exam: Present: regular rate, normal rhythm Expanded Peripheral pulses: 2+: Posterior Tibialis (R), Posterior Tibialis (L) GI/Abdominal exam: Present: soft, tenderness (Mild epigastric tenderness to palpation), normal bowel sounds. Absent: distended, guarding, rebound, rigid, pulsatile mass Extremities exam: Present: normal inspection Neurological exam: Present: alert Psychiatric exam: Present: normal affect, normal mood Skin exam: Present: normal color Course Vital Signs 09/05/16 13:24 Temperature 97.7 F Pulse Rate 70 Respiratory 20 Rate Blood Pressure 129/84 O2 Sat by Pulse 98 Oximetry Medical Decision Making - Medical Decision Making Patient reevaluated and resting comfortably in bed drinking apple juice. Abdomen is soft and nontender. Patient updated on results and need for follow- up including need for follow-up regarding possible gallbladder problems. - Lab Data Result diagrams: 09/05/16 15:01 09/05/16 15:01 Lab Results 09/05/16 09/05/16 09/05/16 Range/Units 15: 15:01 15:01 WBC 18.2 H (3.8-10.6) k/uL RBC 4.95 (4.30-5.90) m/uL Hgb 15.7 (13.0-17.5) gm/dL Hct 45.0 (39.0-53.0) % MCV 90.9 (80.0-100.0) fL MCH 31.8 (25.0-35.0) pg MCHC 34.9 (31.0-37.0) g/dL RDW 12.6 (11.5-15.5) % Plt Count 221 (150-450) k/uL Neutrophils % (Manual) 39.0 % Band Neutrophils % 1.0 % Lymphocytes % (Manual) 11.0 % Monocytes % (Manual) 4.0 % Eosinophils % (Manual) 45.0 % Neutrophils # (Manual) 7.3 (1.3-7.7) k/uL Lymphocytes # (Manual) 2.0 (1.0-4.8) k/uL Monocytes # (Manual) 0.7 (0-1.0) k/uL Eosinophils # (Manual) 8.2 H (0-0.7) k/uL Nucleated RBCs 0 (0-0) /100 WBC Manual Slide Review Performed RBC Morphology Normal PT 12.7 H (9.0-12.0) sec INR 1.3 (<1.1) APTT 25.9 (22.0-30.0) sec Sodium 139 (137-145) mmol/L Potassium 4.5 (3.5-5.1) mmol/L Chloride 108 H (98-107) mmol/L Carbon Dioxide 21 L (22-30) mmol/L Anion Gap 10 mmol/L BUN 14 (9-20) mg/dL Creatinine 1.01 (0.66-1.25) mg/dL Est GFR (MDRD) Af Amer >60 (>60 ml/min/1.73 sqM) Est GFR (MDRD) Non-Af >60 (>60 ml/min/1.73 sqM) Glucose 87 (74-99) mg/dL Calcium 9.6 (8.4-10.2) mg/dL Total Bilirubin 0.5 (0.2-1.3) mg/dL AST 18 (17-59) U/L ALT 20 L (21-72) U/L Alkaline Phosphatase 62 (38-126) U/L Total Protein 6.4 (6.3-8.2) g/dL Albumin 4.1 (3.5-5.0) g/dL Amylase 54 (30-110) U/L Lipase 62 (23-300) U/L Urine Color Urine Appearance (Clear) Urine pH (5.0-8.0) Ur Specific [place] (1.001-1.035) Urine Protein (Negative) Urine Glucose (UA) (Negative) Urine Ketones (Negative) Urine Blood (Negative) Urine Nitrite (Negative) Urine Bilirubin (Negative) Urine Urobilinogen (<2.0) mg/dL Ur Leukocyte Esterase (Negative) 09/05/16 Range/Units 15:01 WBC (3.8-10.6) k/uL RBC (4.30-5.90) m/uL Hgb (13.0-17.5) gm/dL Hct (39.0-53.0) % MCV (80.0-100.0) fL MCH (25.0-35.0) pg MCHC (31.0-37.0) g/dL RDW (11.5-15.5) % Plt Count (150-450) k/uL Neutrophils % (Manual) % Band Neutrophils % % Lymphocytes % (Manual) % Monocytes % (Manual) % Eosinophils % (Manual) % Neutrophils # (Manual) (1.3-7.7) k/uL Lymphocytes # (Manual) (1.0-4.8) k/uL Monocytes # (Manual) (0-1.0) k/uL Eosinophils # (Manual) (0-0.7) k/uL Nucleated RBCs (0-0) /100 WBC Manual Slide Review RBC Morphology PT (9.0-12.0) sec INR (<1.1) APTT (22.0-30.0) sec Sodium (137-145) mmol/L Potassium (3.5-5.1) mmol/L Chloride (98-107) mmol/L Carbon Dioxide (22-30) mmol/L Anion Gap mmol/L BUN (9-20) mg/dL Creatinine (0.66-1.25) mg/dL Est GFR (MDRD) Af Amer (>60 ml/min/1.73 sqM) Est GFR (MDRD) Non-Af (>60 ml/min/1.73 sqM) Glucose (74-99) mg/dL Calcium (8.4-10.2) mg/dL Total Bilirubin (0.2-1.3) mg/dL AST (17-59) U/L ALT (21-72) U/L Alkaline Phosphatase (38-126) U/L Total Protein (6.3-8.2) g/dL Albumin (3.5-5.0) g/dL Amylase (30-110) U/L Lipase (23-300) U/L Urine Color Yellow Urine Appearance Clear (Clear) Urine pH 5.5 (5.0-8.0) Ur Specific [place] 1.015 (1.001-1.035) Urine Protein Negative (Negative) Urine Glucose (UA) Negative (Negative) Urine Ketones Negative (Negative) Urine Blood Negative (Negative) Urine Nitrite Negative (Negative) Urine Bilirubin Negative (Negative) Urine Urobilinogen <2.0 (<2.0) mg/dL Ur Leukocyte Esterase Negative (Negative) - Radiology Data Radiology results: report reviewed (Computed tomography scan abdomen pelvis shows common duct 7 mm.), image reviewed (Abdominal x-ray shows no acute process.) Disposition Clinical Impression: Diarrhea Disposition: HOME SELF-CARE Condition: Stable Instructions: Acute Diarrhea (ED) Additional Instructions: Please follow-up with primary care physician this week. Also have primary care physician review CT results and consider further evaluation of the gallbladder with either ultrasound or HIDA scan. Return for fever, uncontrolled pain, vomiting, worsening symptoms or other concerns. Prescriptions: Diphenox-Atrop 2.5-0.025 mg [Lomotil] 1 tab PO QID PRN #12 tablet PRN Reason: Diarrhea Levofloxacin [Levaquin] 500 mg PO DAILY #10 tab Referrals: Pamela Bonilla MD [Primary Care Provider] - 1-2 days Time of Disposition: 17:55
[2016-09-05 15:22] LABS: Appearance,Urine Clear (Clear); Bilirubin,Urine Negative (Negative); Glucose,Urine (UA) Negative (Negative); Ketones,Urine Negative (Negative); Leukocyte Esterase,Urine Negative (Negative); Nitrite,Urine Negative (Negative); PH, Urine 5.5 (5.0-8.0); Protein,Urine Negative (Negative); Specific Gravity,Urine 1.015 (1.001-1.035); UA Billing (MACRO vs. MICRO) CHEM; Urobilinogen,Urine <2.0 mg/dL (<2.0)
--- NOTE | 2016-09-05 15:26 | XR ---
EXAMINATION TYPE: XR KUB DATE OF EXAM: 09/05/2016 COMPARISON: NONE HISTORY: Pain TECHNIQUE: Single supine KUB image of the abdomen is obtained FINDINGS: Small bowel demonstrates no evidence for dilatation or air fluid levels. Gas and fecal material is seen in non-distended colon. No convincing evidence for pneumoperitoneum. No unusual calcifications. The lung bases are clear. The osseous structures are intact. IMPRESSION: 1. Overall nonobstructive bowel gas pattern.
[2016-09-05 15:45] LABS: CH 32.6; HDW 2.52; HGB 15.7 gm/dL (13.0-17.5); MCH 31.8 pg (25.0-35.0); MCHC 34.9 g/dL (31.0-37.0); MCV 90.9 fL (80.0-100.0); RBC 4.95 m/uL (4.30-5.90); RDW 12.6 % (11.5-15.5); WBC 18.2 k/uL (3.8-10.6)
[2016-09-05 15:50] LABS: INR 1.3 (<1.1); Partial Thromboplastin Time 25.9 sec (22.0-30.0); Prothrombin Time 12.7 sec (9.0-12.0)
[2016-09-05 15:52] LABS: ALT 20 U/L (21-72); AST 18 U/L (17-59); Alkaline Phosphatase 62 U/L (38-126); Amylase 54 U/L (30-110); Anion Gap 10 mmol/L; Blood Urea Nitrogen 14 mg/dL (9-20); Calcium 9.6 mg/dL (8.4-10.2); Carbon Dioxide 21 mmol/L (22-30); Chloride 108 mmol/L (98-107); Glucose 87 mg/dL (74-99); Non-African American GFR(MDRD) >60 (>60 ml/min/1.73 sqM); Potassium 4.5 mmol/L (3.5-5.1); Sodium 139 mmol/L (137-145); Total Bilirubin 0.5 mg/dL (0.2-1.3); Total Protein 6.4 g/dL (6.3-8.2)
[2016-09-05 16:11] LABS: Add Differential Manual Differential
[2016-09-05 16:16] LABS: Manual Review Performed; Nucleated Red Blood Cells 0 /100 WBC (0-0); RBC Morphology Normal; Total Cells Counted 100
[2016-09-05] MEDS ORDERED: HYDROmorphone 1 MG/ML 1 ML SYRINGE IVP STA (16:34)
[2016-09-05] MEDS ORDERED: RX INFO: IV CONTRAST WAS GIVEN 1 EACH MISC MISCELLANE PRN (16:34)
--- NOTE | 2016-09-05 17:31 | CT ---
EXAMINATION TYPE: CT abdomen pelvis w con DATE OF EXAM: 09/05/2016 COMPARISON: NONE HISTORY: abdominal pain and diarrhea x1 week. CT DLP: 703 mGycm Automated exposure control for dose reduction was used. TECHNIQUE: Helical acquisition of images was performed from the lung bases through the pelvis. CONTRAST: Performed without Oral Contrast and with IV Contrast, patient injected with 100 mL of Omnipaque 300. FINDINGS: Lung bases are clear. There is no pleural effusion. Heart size is normal. Gallbladder is large. There is no gallbladder wall thickening. There is mild ectasia of the biliary tree. Spleen and pancreas ap pear normal. There is no adrenal mass. Kidneys show satisfactory contrast opacification. There is no hydronephrosi s. There is no retroperitoneal adenopathy. There is no ascites. Bladder distends smoothly. There is n o pelvic mass. There is no ascites. There is air in the appendix. I see no intestinal wall thickening . There are no dilated loops. Fecal pattern appears normal. I see no bony destructive process. IMPRESSION: THE COMMON BILE DUCT MEASURES 7 MM. THERE IS MILD ECTASIA OF THE BILIARY TREE. THIS COULD RELATE TO G ALLBLADDER DYSFUNCTION. THE DISTAL COMMON BILE DUCT IS NOT DILATED. HEPATOBILIARY SCAN MIGHT BE HELPF UL FOR FURTHER EVALUATION IF CLINICALLY INDICATED.
[2016-09-05 17:51] VITALS: BP 125/72; PULSE 83; RESP 18; TEMP 98
== END 2016-09-05 18:02 | disposition home or self-care (01) ==
LOC: EC 13:20
DX: R19.7 Diarrhea, unspecified (principal); F32.9 Major depressive disorder, single episode, unspecified; F17.200 Nicotine dependence, unspecified, uncomplicated; Z88.8 Allergy status to other drugs, medicaments and biological substances; Z98.890 Other specified postprocedural states; Z79.82 Long term (current) use of aspirin; Z79.899 Other long term (current) drug therapy
CPT/HCPCS: 99284; 96372; 96374; 96375 ×2; 96361; 36415; 80053; 82150; 83690; 85025; 85610; 85730; 81003; 74000; 74177; J0500; J2405; J1170; Q9967; C9113

== ENCOUNTER 2017-01-18 11:15 | Emergency (ER) | payer OTHER ==
[2017-01-18] MEDS ORDERED: SODIUM CHLORIDE 0.9% 500 ML IV STA (12:34)
--- NOTE | 2017-01-18 12:37 | ED ---
General Adult HPI - General Chief complaint: Abdominal Pain Stated complaint: poss gallbladder Time Seen by Provider: 01/18/17 11:25 Source: patient, RN notes reviewed Mode of arrival: ambulatory Limitations: no limitations - History of Present Illness Initial comments: This is a 41-year-old male who presents emergency Department complaining of right upper quadrant abdominal pain 1 week. Patient states this happened to him before in the last time he was in the emergency department he was admitted and was told that his gallbladder was infected and they gave him antibiotics and did no surgery. Patient states the symptoms are very similar to those symptoms. Patient thinks it's his gallbladder that is bothering him. Patient denies any nausea or vomiting. Patient denies any fever or chills patient denies any diarrhea. Patient denies any chest pain difficulty breathing or shortness of breath. Patient denies any cough. Patient denies any back pain. Patient denies any dysuria hematuria urinary frequency. Patient denies headache patient denies numbness weakness. - Related Data Home Medications Medication Instructions Recorded Confirmed Gabapentin [Neurontin] 600 mg PO TID PRN 08/30/16 01/18/17 Ibuprofen [Motrin] 800 mg PO Q6H PRN 01/18/17 01/18/17 Allergies Allergy/AdvReac Type Severity Reaction Status Date / Time cyclobenzaprine AdvReac Behavior Verified 01/18/17 12:12 [From Flexeril] change metaxalone [From Skelaxin] AdvReac Behavior Verified 01/18/17 12:12 change Review of Systems ROS Statement: Those systems with pertinent positive or pertinent negative responses have been documented in the HPI. ROS Other: All systems not noted in ROS Statement are negative. Past Medical History Past Medical History: No Reported History Additional Past Medical History / Comment(s): CHRONIC BACK/NECK PAIN. "BULGING DISCS-NECK", X2 CONCUSSIONS WHEN PLAYING HOCKEY. COLOR BLIND, HIATAL HERNIA, MIRAINE, SHINGLES APPROX 2011, HX IV DRUG ABUSE [facility] A 3/4 HOUSE CALLED [employer], heart valve. History of Any Multi-Drug Resistant Organisms: None Reported Past Surgical History: Hernia Repair Additional Past Surgical History / Comment(s): inguinal hernia repair Past Anesthesia/Blood Transfusion Reactions: No Reported Reaction Additional Past Anesthesia/Blood Transfusion Reaction / Comment(s): CLAUSTERPHOBIA Past Psychological History: Depression Smoking Status: Current every day smoker Past Alcohol Use History: None Reported Past Drug Use History: None Reported - Past Family History Father Family Medical History: Cancer, Diabetes Mellitus, Hypertension, Myocardial Infarction ([place]) Additional Family Medical History / Comment(s): [place] AT AGE 40, CANCER OF THE URETER Mother Family Medical History: Hypertension Additional Family Medical History / Comment(s): DEPRESSION. ON MOMS SIDE DAD AND BROTHER HAD HEART PROBLEMS General Exam - General Exam Comments Initial Comments: GENERAL: Patient is well-developed and well-nourished. Patient is nontoxic and well- hydrated and is in mild distress. ENT: Neck is soft and supple. No significant lymphadenopathy is noted. Oropharynx is clear. Moist mucous membranes. EYES: The sclera were anicteric and conjunctiva were pink and moist. Extraocular movements were intact and pupils were equal round and reactive to light. Eyelids were unremarkable. PULMONARY: Unlabored respirations. Good breath sounds bilaterally. No audible rales rhonchi or wheezing was noted. CARDIOVASCULAR: There is a regular rate and rhythm without any murmurs gallops or rubs. ABDOMEN: Patient has mild right upper quadrant tenderness without rebound or guarding.. No palpable organomegaly was noted. There is no palpable pulsatile mass. SKIN: Skin is clear with no lesions or rashes and otherwise unremarkable. NEUROLOGIC: Patient is alert and oriented x3. Cranial nerves II through XII are grossly intact. Motor and sensory are also intact. Normal speech, volume and content. Symmetrical smile. MUSCULOSKELETAL: Normal extremities with adequate strength and full range of motion. No lower extremity swelling or edema. No calf tenderness. LYMPHATICS: No significant lymphadenopathy is noted PSYCHIATRIC: Normal psychiatric evaluation. Limitations: no limitations Course Vital Signs 01/18/17 11:26 Temperature 97.8 F Pulse Rate 100 Respiratory 18 Rate Blood Pressure 121/76 O2 Sat by Pulse 99 Oximetry Medical Decision Making - Medical Decision Making After all the lab work was back I reevaluated the patient and went in the room. He awoke he stated his pain wasn't as bad as it used to be but he can still feel a little. - Lab Data Result diagrams: 01/18/17 12:00 01/18/17 12:00 Lab Results 01/18/17 01/18/17 Range/Units 12:00 12:00 WBC 10.2 (3.8-10.6) k/uL RBC 4.66 (4.30-5.90) m/uL Hgb 14.5 (13.0-17.5) gm/dL Hct 43.8 (39.0-53.0) % MCV 93.9 (80.0-100.0) fL MCH 31.2 (25.0-35.0) pg MCHC 33.2 (31.0-37.0) g/dL RDW 13.3 (11.5-15.5) % Plt Count 229 (150-450) k/uL Neutrophils % 77 % Lymphocytes % 14 % Monocytes % 5 % Eosinophils % 4 % Basophils % 1 % Neutrophils # 7.8 H (1.3-7.7) k/uL Lymphocytes # 1.4 (1.0-4.8) k/uL Monocytes # 0.5 (0-1.0) k/uL Eosinophils # 0.4 (0-0.7) k/uL Basophils # 0.1 (0-0.2) k/uL Sodium 139 (137-145) mmol/L Potassium 4.5 (3.5-5.1) mmol/L Chloride 108 H (98-107) mmol/L Carbon Dioxide 26 (22-30) mmol/L Anion Gap 5 mmol/L BUN 13 (9-20) mg/dL Creatinine 0.97 (0.66-1.25) mg/dL Est GFR (MDRD) Af Amer >60 (>60 ml/min/1.73 sqM) Est GFR (MDRD) Non-Af >60 (>60 ml/min/1.73 sqM) Glucose 77 (74-99) mg/dL Calcium 8.6 (8.4-10.2) mg/dL Total Bilirubin 0.4 (0.2-1.3) mg/dL AST 24 (17-59) U/L ALT 25 (21-72) U/L Alkaline Phosphatase 58 (38-126) U/L Total Protein 5.4 L (6.3-8.2) g/dL Albumin 3.4 L (3.5-5.0) g/dL Amylase <30 L (30-110) U/L Lipase 58 (23-300) U/L Disposition Clinical Impression: Abdominal pain Disposition: HOME SELF-CARE Condition: Good Instructions: Abdominal Pain (ED) Referrals: Pamela Bonilla MD [Primary Care Provider] - 1-2 days Time of Disposition: 14:18
[2017-01-18 12:41] LABS: Basophils # (A) 0.1 k/uL (0-0.2); Basophils % (A) 1 %; CH 30.8; Eosinophils # (A) 0.4 k/uL (0-0.7); Eosinophils % (A) 4 %; HCT 43.8 % (39.0-53.0); HDW 2.22; HGB 14.5 gm/dL (13.0-17.5); Luc # (Auto) 0.06; Luc % (Auto) 1; Lymphocytes # (A) 1.4 k/uL (1.0-4.8); Lymphocytes % (A) 14 %; MCH 31.2 pg (25.0-35.0); MCHC 33.2 g/dL (31.0-37.0); MCV 93.9 fL (80.0-100.0); Mean Platelet Volume 8.4; Monocytes # (A) 0.5 k/uL (0-1.0); Monocytes % (A) 5 %; Neutrophils # (A) 7.8 k/uL (1.3-7.7); Neutrophils % (A) 77 %; RBC 4.66 m/uL (4.30-5.90); RDW 13.3 % (11.5-15.5); WBC 10.2 k/uL (3.8-10.6); WBC (Perox) 10.72
[2017-01-18 12:47] LABS: Amylase <30 U/L (30-110); Anion Gap 5 mmol/L; Calcium 8.6 mg/dL (8.4-10.2); Carbon Dioxide 26 mmol/L (22-30); Chloride 108 mmol/L (98-107); Glucose 77 mg/dL (74-99); Non-African American GFR(MDRD) >60 (>60 ml/min/1.73 sqM); Sodium 139 mmol/L (137-145); Total Bilirubin 0.4 mg/dL (0.2-1.3); Total Protein 5.4 g/dL (6.3-8.2)
[2017-01-18 12:51] LABS: ALT 25 U/L (21-72); AST 24 U/L (17-59); Alkaline Phosphatase 58 U/L (38-126); Blood Urea Nitrogen 13 mg/dL (9-20); Potassium 4.5 mmol/L (3.5-5.1)
--- NOTE | 2017-01-18 13:56 | US ---
EXAMINATION TYPE: US gallbladder DATE OF EXAM: 01/18/2017 COMPARISON: NONE CLINICAL HISTORY: Pain. RUQ and epigastric pain EXAM MEASUREMENTS: Liver Length: 12.4 cm Gallbladder Wall: 0.2 cm CBD: 0.6 cm Right Kidney: 9.5 x 3.7 x 4.2 cm Pancreas: not well visualized due to midline bowel gas Liver: wnl Gallbladder: No stones seen, appears contracted, patient last ate approximately 4 hours ago Evidence for sonographic Nunez's sign: No CBD: measures 0.6 cm Right Kidney: No hydronephrosis or masses seen, not well visualized, partially obscured by bowel gas lower pole. The pancreas is not well-visualized. The liver is normal in length without biliary dilatation. The gallbladder is unremarkable. It is partially contracted. The gallbladder wall measures 2 mm. The distal common hepatic duct measures 6 mm. Limited views of the right kidney are unremarkable. IMPRESSION: NO ACUTE RIGHT UPPER QUADRANT ABNORMALITY.
[2017-01-18 14:46] VITALS: BP 140/82; PULSE 73; RESP 16; TEMP 97.6
== END 2017-01-18 14:46 | disposition home or self-care (01) ==
LOC: EC 11:15
DX: R10.11 Right upper quadrant pain (principal); F17.200 Nicotine dependence, unspecified, uncomplicated; Z88.8 Allergy status to other drugs, medicaments and biological substances
CPT/HCPCS: 36415; 76705; 80053; 82150; 83690; 85025; 99284